=== PATIENT | male | born 1960 | race Caucasian/White ===

== ENCOUNTER 2020-11-18 07:30 | Inpatient (IN) | payer MEDICAID, OTHER ==
[~2020-11-18] VITALS: Ht 182.9 cm; Wt 64.7 kg
[2020-11-18] MEDS ORDERED: THIAMINE INJ 100 MG in SODIUM CHLORIDE 0.9% 1,000 ML IV ONE (08:45)
[2020-11-18] MEDS ORDERED: SODIUM CHLORIDE 0.9% 1,000 ML IV ONE ×3 (08:45→09:45)
[2020-11-18] MEDS ORDERED: LORazepam 2MG/ML-1ML VIAL IV ONE (09:00)
[2020-11-18 09:14] LABS: Basophils # (auto) 0 10 ^3/uL (0-0.2); Basophils % (auto) 0.1 % (0.0-2.0); Eosinophils # (auto) 0 10 ^3/uL (0-0.8); Hematocrit 41.8 % (41.0-53.0); Lymphocytes # (auto) 0.4 10 ^3/uL (0.4-5.4); Lymphocytes % (auto) 4.2 % (10.0-50.0); Monocytes # (auto) 0.8 10 ^3/uL (0-1.3); Nucleated Red Blood Cells % 0.2 %
[2020-11-18 09:17] LABS: Hemoglobin 15.2 g/dL (13.5-17.5); Mean Corpuscular Hemoglobin 37.7 pg (28.0-32.0); Mean Corpuscular Hgb Conc. 36.5 g/dL (32.0-36.0); Mean Corpuscular Volume 103.5 fL (80.0-100.0); Monocytes % (auto) 8.2 % (0.0-12.0); Neutrophils % (auto) 87.5 % (37.0-80.0); Red Blood Cells 4.03 10^6/uL (4.5-5.90); Red Cell Distribution Width 12.5 % (11.8-14.3); White Blood Cell 10.3 10^3/uL (4.4-10.8)
[2020-11-18 09:37] LABS: Albumin 3.5 g/dL (3.4-5.0); Anion Gap 21 (5-15); Blood Urea Nitrogen 24 mg/dL (7-18); Calcium 9.4 mg/dL (8.5-10.1); Carbon Dioxide 15 mmol/L (21-32); Chloride 102 mmol/L (98-107); Glucose 146 mg/dL (74-106); Magnesium 2.4 mg/dL (1.6-2.6); Potassium 3.5 mmol/L (3.5-5.1); Sodium 138 mmol/L (136-145)
[2020-11-18 09:45] LABS: Alanine Aminotransferase 75 U/L (16-61); Alkaline Phosphatase 116 U/L (45-117); Aspartate Aminotransferase 78 U/L (15-37); BUN/Creatinine Ratio 18.5; Bilirubin, Total 1.2 mg/dL (0.2-1.0); GFR African American 73 mL/min; GFR Non-African American 60 mL/min; Total Protein 8.2 g/dL (6.4-8.2)
[2020-11-18 09:50] LABS: Lactic Acid w/Reflex 9.8 mmol/L (0.4-2.0)
[2020-11-18 10:23] LABS: Urine Amorphous Crystal FEW /hpf (None Seen); Urine Bacteria FEW /hpf (None Seen); Urine Blood TRACE /uL (Negative); Urine Hyaline Cast FEW /lpf (0 - 2); Urine Mucus FEW (None Seen); Urine Specific Gravity 1.029 (1.001-1.035); Urine WBC 3 /hpf (0 - 3)
[2020-11-18 10:42] LABS: Amphetamine Screen, Urine NEGATIVE (NEGATIVE); Barbiturate Scree,Urine NEGATIVE (NEGATIVE); Benzodiazephine Screen, Urine NEGATIVE (NEGATIVE); Cannabinoid Screen, Urine NEGATIVE (NEGATIVE); Cocaine Screen, Urine NEGATIVE (NEGATIVE); Opiate Scree,Urine NEGATIVE (NEGATIVE); Phencyclidine Screen, Urine NEGATIVE (NEGATIVE)
[2020-11-18] MEDS ORDERED: DOXYCYCLINE 100MG/250ML 250 ML IV ONE ×2 (11:58→12:00)
[2020-11-18] MEDS ORDERED: DexAMETHasone SOD PHOS 10MG/1ML VIAL INJ IV ONE (14:30)
[2020-11-18] MEDS ORDERED: MORPHINE SULFATE INJECTION 2 MG/ML SYRG IV PRN (15:15)
[2020-11-18] MEDS ORDERED: NITROGLYCERIN 0.4 MG SL TAB SL PRN (15:15)
[2020-11-18] MEDS ORDERED: ALBUTEROL SULF HFA 90MCG INH 200DOSE IN PRN (15:45)
[2020-11-18] MEDS ORDERED: PANTOPRAZOLE 40 MG/10 ML VIAL INJ IV ONE (15:45)
[2020-11-18] MEDS ORDERED: THIAMINE 100mg/ml INJ (200mg/2ml VIAL) IV ONE (15:45)
[2020-11-18] MEDS ORDERED: LABETALOL HCL 5 MG/ML ML 20ML VIAL IV PRN (15:45)
[2020-11-18] MEDS ORDERED: chlordiazePOXIDE HCL 25 MG CAP PO PRN (15:45)
[2020-11-18] MEDS ORDERED: LACTULOSE 20Gm/30ML SOLN PO PRN (15:45)
[2020-11-18] MEDS: SODIUM CHLORIDE 0.9% 1,000 ML IV SCH ×2 (15:57→20:43)
[2020-11-18 16:09] LABS: CRP High Sensitivity 7.07 mg/dL (< 0.3)
[2020-11-18 17:35] LABS: INR 1.04 (0.9-1.15); Partial Thromboplastin Time 29.1 sec (23.0-31.2)
[2020-11-18] MEDS: chlordiazePOXIDE HCL 5 MG CAP PO SCH ×2 (18:15→23:09)
[2020-11-18] MEDS: CLINDAMYCIN 600MG IV 50 ML IV SCH (21:54)
[2020-11-18] MEDS: ENOXAPARIN SOD 40 MG/0.4 ML SYRINGE SC SCH (21:55)
[2020-11-18] MEDS ORDERED: BUDESONIDE (INHALATION) 180 MCG IH IN SCH (22:00)
[2020-11-19 06:17] LABS: Basophils # (auto) 0 10 ^3/uL (0-0.2); Basophils % (auto) 0.1 % (0.0-2.0); Eosinophils # (auto) 0 10 ^3/uL (0-0.8); Eosinophils % (auto) 0.2 % (0.0-7.0); Hemoglobin 11.5 g/dL (13.5-17.5); Lymphocytes # (auto) 0.7 10 ^3/uL (0.4-5.4); Lymphocytes % (auto) 9.5 % (10.0-50.0); Mean Corpuscular Hemoglobin 37.1 pg (28.0-32.0); Mean Corpuscular Hgb Conc. 35.9 g/dL (32.0-36.0); Mean Corpuscular Volume 103.3 fL (80.0-100.0); Monocytes # (auto) 0.6 10 ^3/uL (0-1.3); Monocytes % (auto) 8.8 % (0.0-12.0); Neutrophils % (auto) 81.4 % (37.0-80.0); Nucleated Red Blood Cells % 0.2 %; Red Cell Distribution Width 12.5 % (11.8-14.3); White Blood Cell 7.4 10^3/uL (4.4-10.8)
[2020-11-19] MEDS: CLINDAMYCIN 600MG IV 50 ML IV SCH ×3 (06:28→22:37)
[2020-11-19] MEDS: chlordiazePOXIDE HCL 5 MG CAP PO SCH ×3 (06:31→18:12)
[2020-11-19 06:36] LABS: Cholesterol 93 mg/dL (< 200); Triglycerides 77 mg/dL (< 150)
[2020-11-19 06:38] LABS: HDL Cholesterol 51 mg/dL (40-59); LDL Cholesterol 32 mg/dL (< 100)
[2020-11-19 06:56] LABS: BUN/Creatinine Ratio 29.2
[2020-11-19 06:57] LABS: Albumin 2.4 g/dL (3.4-5.0); Bilirubin, Total 0.7 mg/dL (0.2-1.0); Calcium 7.6 mg/dL (8.5-10.1); Total Protein 5.9 g/dL (6.4-8.2)
[2020-11-19] MEDS ORDERED: IVERMECTIN 3 MG TAB PO ONE (07:00)
[2020-11-19] MEDS: SODIUM CHLORIDE 0.9% 1,000 ML IV SCH ×3 (08:05→23:45)
[2020-11-19] MEDS: levoFLOXacin 500MG 100 ML IV SCH (10:05)
[2020-11-19] MEDS: ASPirin 81 mg TAB PO SCH (10:05)
[2020-11-19] MEDS: ZINC SULFATE 220mg CAP or TAB PO SCH (10:05)
[2020-11-19] MEDS: PANTOPRAZOLE 40 MG TAB PO SCH (10:05)
[2020-11-19] MEDS: CHOLECALCIFEROL (VITD3) 2,000 UNIT CAP/TAB PO SCH (10:05)
[2020-11-19] MEDS: ENOXAPARIN SOD 40 MG/0.4 ML SYRINGE SC SCH ×2 (10:05→22:38)
[2020-11-19] MEDS: DexAMETHasone SOD PHOS 10MG/1ML VIAL INJ IV SCH (10:05)
[2020-11-19] MEDS: THIAMINE 100mg/ml INJ (200mg/2ml VIAL) IV SCH (10:05)
[2020-11-19] MEDS: ASCORBIC ACID 1,000 MG TAB PO SCH (10:05)
[2020-11-19] MEDS ORDERED: POTASSIUM EFFERVESENT TAB 25 MEQ PO ONE (13:30)
[2020-11-20] MEDS: chlordiazePOXIDE HCL 5 MG CAP PO SCH ×4 (02:06→18:27)
[2020-11-20] MEDS: CLINDAMYCIN 600MG IV 50 ML IV SCH ×3 (06:23→23:18)
[2020-11-20] MEDS: ASCORBIC ACID 1,000 MG TAB PO SCH (09:03)
[2020-11-20] MEDS: ASPirin 81 mg TAB PO SCH (09:04)
[2020-11-20] MEDS: PANTOPRAZOLE 40 MG TAB PO SCH (09:04)
[2020-11-20] MEDS: ZINC SULFATE 220mg CAP or TAB PO SCH (09:04)
[2020-11-20] MEDS: CHOLECALCIFEROL (VITD3) 2,000 UNIT CAP/TAB PO SCH (09:04)
[2020-11-20] MEDS: ENOXAPARIN SOD 40 MG/0.4 ML SYRINGE SC SCH ×2 (09:05→22:00)
[2020-11-20] MEDS: levoFLOXacin 500MG 100 ML IV SCH (09:05)
[2020-11-20] MEDS: DexAMETHasone SOD PHOS 10MG/1ML VIAL INJ IV SCH (09:06)
[2020-11-20] MEDS: THIAMINE 100mg/ml INJ (200mg/2ml VIAL) IV SCH (09:06)
[2020-11-20] MEDS: SODIUM CHLORIDE 0.9% 1,000 ML IV SCH ×3 (09:06→23:45)
[2020-11-20] MEDS: FOLIC ACID 1 MG, MAGNESIUM SULF SDV 50% 8 MEQ, THIAMINE INJ 100 MG in D5W 5% 1,000 ML INJ SCH (12:21)
[2020-11-20] MEDS: MULTIPLE VITAMIN TAB PO SCH (13:03)
[2020-11-21] MEDS: chlordiazePOXIDE HCL 5 MG CAP PO SCH ×5 (02:40→23:50)
[2020-11-21] MEDS: CLINDAMYCIN 600MG IV 50 ML IV SCH ×3 (06:59→22:00)
[2020-11-21] MEDS ORDERED: POTASSIUM CHL 20 Meq TABLET PO ONE (09:00)
[2020-11-21 09:33] LABS: Basophils # (auto) 0 10 ^3/uL (0-0.2); Basophils % (auto) 0.1 % (0.0-2.0); Eosinophils # (auto) 0.1 10 ^3/uL (0-0.8); Lymphocytes # (auto) 0.8 10 ^3/uL (0.4-5.4); Nucleated Red Blood Cells % 0.1 %; White Blood Cell 7.8 10^3/uL (4.4-10.8)
[2020-11-21 09:37] LABS: Eosinophils % (auto) 1.2 % (0.0-7.0); Hematocrit 35.5 % (41.0-53.0); Hemoglobin 12.8 g/dL (13.5-17.5); Lymphocytes % (auto) 10.2 % (10.0-50.0); Mean Corpuscular Hemoglobin 36.4 pg (28.0-32.0); Mean Corpuscular Hgb Conc. 36.1 g/dL (32.0-36.0); Mean Corpuscular Volume 100.8 fL (80.0-100.0); Monocytes # (auto) 0.8 10 ^3/uL (0-1.3); Neutrophils # (auto) 6.1 10 ^3/uL (1.6-8.6); Neutrophils % (auto) 78.5 % (37.0-80.0); Red Blood Cells 3.53 10^6/uL (4.5-5.90); Red Cell Distribution Width 12.5 % (11.8-14.3)
[2020-11-21 09:43] LABS: Albumin 2.2 g/dL (3.4-5.0); Calcium 7.5 mg/dL (8.5-10.1)
[2020-11-21 09:46] LABS: BUN/Creatinine Ratio 18.8; Bilirubin, Total 0.6 mg/dL (0.2-1.0); Total Protein 5.6 g/dL (6.4-8.2)
[2020-11-21 09:55] LABS: Potassium 2.3 mmol/L (3.5-5.1)
[2020-11-21] MEDS: SODIUM CHLORIDE 0.9% 1,000 ML IV SCH ×3 (10:31→20:30)
[2020-11-21] MEDS: ASPirin 81 mg TAB PO SCH (10:34)
[2020-11-21] MEDS: DexAMETHasone SOD PHOS 10MG/1ML VIAL INJ IV SCH (10:34)
[2020-11-21] MEDS: ENOXAPARIN SOD 40 MG/0.4 ML SYRINGE SC SCH ×2 (10:34→22:00)
[2020-11-21] MEDS: POTASSIUM CHL 20MEQ/100ML 100 ML IV SCH ×4 (10:34→16:26)
[2020-11-21] MEDS: MULTIPLE VITAMIN TAB PO SCH (10:41)
[2020-11-21] MEDS: ASCORBIC ACID 1,000 MG TAB PO SCH (10:41)
[2020-11-21] MEDS: ZINC SULFATE 220mg CAP or TAB PO SCH (10:41)
[2020-11-21] MEDS: CHOLECALCIFEROL (VITD3) 2,000 UNIT CAP/TAB PO SCH (10:41)
[2020-11-21] MEDS: PANTOPRAZOLE 40 MG TAB PO SCH (10:42)
[2020-11-21] MEDS: THIAMINE 100mg/ml INJ (200mg/2ml VIAL) IV SCH (10:51)
[2020-11-21] MEDS: IPRATROPIUM BROM 0.5 MG/2.5ML INH SOL NEB SCH ×2 (11:33→19:39)
[2020-11-21] MEDS: ALBUTEROL SULF 2.5 MG/0.5ML(0.5%) NEB SOLN NEB SCH ×2 (11:47→19:39)
[2020-11-21] MEDS ORDERED: ACETYLCYSTEINE 10 %(100MG/ML) SOL 4ML NEB SCH (12:00)
[2020-11-21] MEDS: FOLIC ACID 1 MG, MAGNESIUM SULF SDV 50% 8 MEQ, THIAMINE INJ 100 MG in D5W 5% 1,000 ML INJ SCH (12:30)
[2020-11-21] MEDS: levoFLOXacin 500MG 100 ML IV SCH (13:11)
[2020-11-21 18:28] VITALS: BP 101/69
[2020-11-21] MEDS: ACETYLCYSTEINE 10 %(100MG/ML) SOL 4ML NEB SCH (19:39)
[2020-11-21 21:51] VITALS: BP 94/59
[2020-11-22 05:37] VITALS: BP 115/65
[2020-11-22] MEDS: CLINDAMYCIN 600MG IV 50 ML IV SCH (06:00)
[2020-11-22] MEDS: chlordiazePOXIDE HCL 5 MG CAP PO SCH ×4 (06:00→23:35)
[2020-11-22] MEDS: SODIUM CHLORIDE 0.9% 1,000 ML IV SCH ×3 (06:00→23:35)
[2020-11-22] MEDS: ACETYLCYSTEINE 10 %(100MG/ML) SOL 4ML NEB SCH ×3 (06:07→19:24)
[2020-11-22] MEDS: IPRATROPIUM BROM 0.5 MG/2.5ML INH SOL NEB SCH ×3 (06:07→19:24)
[2020-11-22] MEDS: ALBUTEROL SULF 2.5 MG/0.5ML(0.5%) NEB SOLN NEB SCH ×3 (06:07→19:24)
[2020-11-22 07:46] VITALS: BP 147/60
[2020-11-22] MEDS ORDERED: POTASSIUM CHL 20 Meq TABLET PO ONE (10:00)
[2020-11-22] MEDS: THIAMINE 100mg/ml INJ (200mg/2ml VIAL) IV SCH (10:06)
[2020-11-22] MEDS: ENOXAPARIN SOD 40 MG/0.4 ML SYRINGE SC SCH ×2 (10:06→21:16)
[2020-11-22] MEDS: ASPirin 81 mg TAB PO SCH (10:06)
[2020-11-22] MEDS: PANTOPRAZOLE 40 MG TAB PO SCH (10:06)
[2020-11-22] MEDS: levoFLOXacin 500MG 100 ML IV SCH (10:06)
[2020-11-22] MEDS ORDERED: POTASSIUM CHLORIDE 60 MEQ, LIDOCAINE 1% (LOCAL ANESTH.) 6 ML in SODIUM CHL 0.9% 500 ML IV ONE (10:15)
[2020-11-22 15:47] VITALS: BP 101/58
[2020-11-22] MEDS ORDERED: POTASSIUM EFFERVESENT TAB 25 MEQ GT SCH (20:00)
[2020-11-22] MEDS ORDERED: LORazepam 2MG/ML-1ML VIAL IV PRN (20:30)
[2020-11-22] MEDS: POTASSIUM EFFERVESENT TAB 25 MEQ PO SCH (20:35)
[2020-11-22 22:00] VITALS: BP_SYST 159; BP_SYST 99; BP_DIAS 67; BP_DIAS 85
[2020-11-23] MEDS: chlordiazePOXIDE HCL 5 MG CAP PO SCH ×4 (05:41→23:32)
[2020-11-23 05:43] VITALS: BP 128/71
[2020-11-23] MEDS: SODIUM CHLORIDE 0.9% 1,000 ML IV SCH ×3 (06:51→21:44)
[2020-11-23] MEDS: ALBUTEROL SULF 2.5 MG/0.5ML(0.5%) NEB SOLN NEB SCH ×3 (07:00→18:52)
[2020-11-23] MEDS: ACETYLCYSTEINE 10 %(100MG/ML) SOL 4ML NEB SCH ×3 (07:00→18:52)
[2020-11-23] MEDS: IPRATROPIUM BROM 0.5 MG/2.5ML INH SOL NEB SCH ×3 (07:00→18:52)
[2020-11-23 08:00] VITALS: BP 103/70
[2020-11-23 08:12] LABS: Albumin 2.3 g/dL (3.4-5.0); Calcium 7.7 mg/dL (8.5-10.1)
[2020-11-23 08:16] LABS: BUN/Creatinine Ratio 6.7; Bilirubin, Total 0.5 mg/dL (0.2-1.0); Total Protein 5.6 g/dL (6.4-8.2)
[2020-11-23] MEDS: POTASSIUM EFFERVESENT TAB 25 MEQ PO SCH (10:26)
[2020-11-23] MEDS: PANTOPRAZOLE 40 MG TAB PO SCH (10:26)
[2020-11-23] MEDS: ASPirin 81 mg TAB PO SCH (10:26)
[2020-11-23] MEDS: ENOXAPARIN SOD 40 MG/0.4 ML SYRINGE SC SCH ×2 (10:27→21:44)
[2020-11-23] MEDS: THIAMINE 100mg/ml INJ (200mg/2ml VIAL) IV SCH (10:27)
[2020-11-23] MEDS: levoFLOXacin 500MG 100 ML IV SCH (10:27)
[2020-11-23] MEDS ORDERED: POTASSIUM CHL 20 Meq TABLET PO ONE (11:45)
[2020-11-23 16:00] VITALS: BP 106/65
[2020-11-23 22:00] VITALS: BP 102/74
[2020-11-24 05:00] VITALS: BP 127/84
[2020-11-24] MEDS: ALBUTEROL SULF 2.5 MG/0.5ML(0.5%) NEB SOLN NEB SCH ×3 (05:50→18:00)
[2020-11-24] MEDS: IPRATROPIUM BROM 0.5 MG/2.5ML INH SOL NEB SCH ×3 (05:50→18:00)
[2020-11-24] MEDS: ACETYLCYSTEINE 10 %(100MG/ML) SOL 4ML NEB SCH ×3 (05:50→18:00)
[2020-11-24] MEDS: chlordiazePOXIDE HCL 5 MG CAP PO SCH ×3 (05:59→18:35)
[2020-11-24 07:08] LABS: Potassium 3.1 mmol/L (3.5-5.1)
[2020-11-24 07:20] LABS: Albumin 2.4 g/dL (3.4-5.0); BUN/Creatinine Ratio 8.9; Bilirubin, Total 0.6 mg/dL (0.2-1.0); Calcium 7.9 mg/dL (8.5-10.1)
[2020-11-24 07:34] VITALS: BP 117/72
[2020-11-24] MEDS: SODIUM CHLORIDE 0.9% 1,000 ML IV SCH ×3 (07:45→23:45)
[2020-11-24] MEDS: THIAMINE 100mg/ml INJ (200mg/2ml VIAL) IV SCH (09:16)
[2020-11-24] MEDS: levoFLOXacin 500MG 100 ML IV SCH (09:16)
[2020-11-24] MEDS: ASPirin 81 mg TAB PO SCH (09:16)
[2020-11-24] MEDS: POTASSIUM EFFERVESENT TAB 25 MEQ PO SCH ×4 (09:16→22:18)
[2020-11-24] MEDS: ENOXAPARIN SOD 40 MG/0.4 ML SYRINGE SC SCH ×2 (09:17→22:19)
[2020-11-24] MEDS: PANTOPRAZOLE 40 MG TAB PO SCH (09:17)
[2020-11-24] MEDS ORDERED: ACETAMINOPHEN 325 MG TAB PO PRN (15:30)
[2020-11-24 16:00] VITALS: BP 102/61
[2020-11-24] MEDS: FOLIC ACID 1 MG TAB PO SCH (18:34)
[2020-11-24] MEDS: MULTIPLE VITAMIN TAB PO SCH (18:34)
[2020-11-24 22:00] VITALS: BP 103/64
[2020-11-24] MEDS: FOLIC ACID 1 MG, MAGNESIUM SULF SDV 50% 8 MEQ, THIAMINE INJ 100 MG in D5W 5% 1,000 ML INJ SCH (22:17)
[2020-11-25] MEDS: chlordiazePOXIDE HCL 5 MG CAP PO SCH ×4 (00:59→20:02)
[2020-11-25 05:00] VITALS: BP 99/69
[2020-11-25 06:07] LABS: Albumin 2.7 g/dL (3.4-5.0); Calcium 8.7 mg/dL (8.5-10.1); Potassium 4.1 mmol/L (3.5-5.1)
[2020-11-25 06:09] LABS: BUN/Creatinine Ratio 6.8
[2020-11-25 06:19] LABS: Bilirubin, Total 0.6 mg/dL (0.2-1.0); Total Protein 6.5 g/dL (6.4-8.2)
[2020-11-25] MEDS: SODIUM CHLORIDE 0.9% 1,000 ML IV SCH ×3 (07:45→20:52)
[2020-11-25 08:00] VITALS: BP 103/75
[2020-11-25] MEDS: ALBUTEROL SULF 2.5 MG/0.5ML(0.5%) NEB SOLN NEB SCH ×3 (08:35→19:16)
[2020-11-25] MEDS: IPRATROPIUM BROM 0.5 MG/2.5ML INH SOL NEB SCH ×3 (08:35→19:16)
[2020-11-25] MEDS: ACETYLCYSTEINE 10 %(100MG/ML) SOL 4ML NEB SCH ×3 (08:36→19:16)
[2020-11-25] MEDS: POTASSIUM EFFERVESENT TAB 25 MEQ PO SCH ×2 (11:18→22:00)
[2020-11-25] MEDS: levoFLOXacin 500MG 100 ML IV SCH (11:18)
[2020-11-25] MEDS: PANTOPRAZOLE 40 MG TAB PO SCH (11:18)
[2020-11-25] MEDS: FOLIC ACID 1 MG TAB PO SCH (11:18)
[2020-11-25] MEDS: ASPirin 81 mg TAB PO SCH (11:18)
[2020-11-25] MEDS: MULTIPLE VITAMIN TAB PO SCH (11:18)
[2020-11-25] MEDS: THIAMINE 100mg/ml INJ (200mg/2ml VIAL) IV SCH (11:18)
[2020-11-25] MEDS: ENOXAPARIN SOD 40 MG/0.4 ML SYRINGE SC SCH ×2 (11:18→22:00)
[2020-11-25] MEDS: FOLIC ACID 1 MG, MAGNESIUM SULF SDV 50% 8 MEQ, THIAMINE INJ 100 MG in D5W 5% 1,000 ML INJ SCH (13:29)
[2020-11-25 16:00] VITALS: BP 91/52
[2020-11-25 22:00] VITALS: BP 94/57
[2020-11-26 05:00] VITALS: BP 98/71
[2020-11-26] MEDS: chlordiazePOXIDE HCL 5 MG CAP PO SCH ×3 (05:46→12:00)
[2020-11-26] MEDS: IPRATROPIUM BROM 0.5 MG/2.5ML INH SOL NEB SCH ×3 (06:37→18:24)
[2020-11-26] MEDS: ALBUTEROL SULF 2.5 MG/0.5ML(0.5%) NEB SOLN NEB SCH ×3 (06:37→18:24)
[2020-11-26] MEDS: ACETYLCYSTEINE 10 %(100MG/ML) SOL 4ML NEB SCH ×3 (06:38→18:25)
[2020-11-26] MEDS: SODIUM CHLORIDE 0.9% 1,000 ML IV SCH ×3 (09:20→23:45)
[2020-11-26] MEDS: THIAMINE 100mg/ml INJ (200mg/2ml VIAL) IV SCH (09:56)
[2020-11-26] MEDS: ASPirin 81 mg TAB PO SCH (09:57)
[2020-11-26] MEDS: FOLIC ACID 1 MG TAB PO SCH (09:57)
[2020-11-26] MEDS: levoFLOXacin 500MG 100 ML IV SCH (09:57)
[2020-11-26] MEDS: POTASSIUM EFFERVESENT TAB 25 MEQ PO SCH ×2 (09:57→22:00)
[2020-11-26] MEDS: PANTOPRAZOLE 40 MG TAB PO SCH (09:58)
[2020-11-26] MEDS: MULTIPLE VITAMIN TAB PO SCH (09:58)
[2020-11-26] MEDS: ENOXAPARIN SOD 40 MG/0.4 ML SYRINGE SC SCH ×2 (09:58→22:00)
[2020-11-26] MEDS: LIDOCAINE 5% TOPICAL PATCH TOP SCH (09:59)
[2020-11-26] MEDS: FOLIC ACID 1 MG, MAGNESIUM SULF SDV 50% 8 MEQ, THIAMINE INJ 100 MG in D5W 5% 1,000 ML INJ SCH (12:00)
[2020-11-26 16:00] VITALS: BP 91/56
[2020-11-26 22:00] VITALS: BP 103/67
[2020-11-27] MEDS: chlordiazePOXIDE HCL 5 MG CAP PO SCH ×4 (06:00→18:42)
[2020-11-27] MEDS: IPRATROPIUM BROM 0.5 MG/2.5ML INH SOL NEB SCH ×2 (06:00→11:30)
[2020-11-27] MEDS: ALBUTEROL SULF 2.5 MG/0.5ML(0.5%) NEB SOLN NEB SCH ×2 (06:00→11:30)
[2020-11-27] MEDS: ACETYLCYSTEINE 10 %(100MG/ML) SOL 4ML NEB SCH ×2 (06:00→11:30)
[2020-11-27] MEDS: SODIUM CHLORIDE 0.9% 1,000 ML IV SCH ×2 (07:45→19:16)
[2020-11-27 08:00] VITALS: BP 92/65
[2020-11-27] MEDS ORDERED: DOXYCYCLINE 100 MG TAB/CAP PO SCH (10:00)
[2020-11-27] MEDS ORDERED: levoFLOXacin 500 MG TAB PO SCH (10:00)
[2020-11-27] MEDS: ENOXAPARIN SOD 40 MG/0.4 ML SYRINGE SC SCH (10:16)
[2020-11-27] MEDS: POTASSIUM EFFERVESENT TAB 25 MEQ PO SCH (10:16)
[2020-11-27] MEDS: LIDOCAINE 5% TOPICAL PATCH TOP SCH (10:16)
[2020-11-27] MEDS: MULTIPLE VITAMIN TAB PO SCH (10:18)
[2020-11-27] MEDS: ASPirin 81 mg TAB PO SCH (10:18)
[2020-11-27] MEDS: FOLIC ACID 1 MG TAB PO SCH (10:18)
[2020-11-27] MEDS: PANTOPRAZOLE 40 MG TAB PO SCH (10:19)
[2020-11-27] MEDS: THIAMINE 100mg/ml INJ (200mg/2ml VIAL) IV SCH (13:24)
[2020-11-27] MEDS: FOLIC ACID 1 MG, MAGNESIUM SULF SDV 50% 8 MEQ, THIAMINE INJ 100 MG in D5W 5% 1,000 ML INJ SCH (13:27)
[2020-11-27 16:00] VITALS: BP 102/79
[2020-11-27 17:05] VITALS: BP 102/79
== END 2020-11-27 19:04 | DRG 45 ==
LOC: ER 07:30 → EDBD 07:30 → TELE 15:07 → TELE-CENTR 11-21 17:47
PROVIDERS: ADMIT Internal Medicine; ATTEND Family Medicine
DX: I63.9 Cerebral infarction, unspecified (principal); G93.41 Metabolic encephalopathy; F10.231 Alcohol dependence with withdrawal delirium; J18.9 Pneumonia, unspecified organism; E51.2 Wernicke's encephalopathy; K85.90 Acute pancreatitis without necrosis or infection, unspecified; E87.2 Acidosis; K76.0 Fatty (change of) liver, not elsewhere classified; Y90.0 Blood alcohol level of less than 20 mg/100 ml; J43.9 Emphysema, unspecified; Z20.822 Contact with and (suspected) exposure to COVID-19; R09.02 Hypoxemia; F17.200 Nicotine dependence, unspecified, uncomplicated; D69.59 Other secondary thrombocytopenia; M54.2 Cervicalgia; E87.6 Hypokalemia; J44.0 Chronic obstructive pulmonary disease with (acute) lower respiratory infection
CPT/HCPCS: 36415; 36600; 70450; 71045; 71250; 72141; 74176; 76705; 80053; 80061; 80307; 81001; 82140; 82150; 82550; 82805; 83605; 83690; 83735; 84132; 84443; 84484; 85025; 85610; 85652; 85730; 86141; 87040; 87086; 87426; 92610; 93005; 94640; 95819; 96361; 96365; 96367; 96375; C9113; G0378; J1100; J1956; J2001; J3480; J3490

== ENCOUNTER 2021-08-22 17:12 | Inpatient (IN) | payer MEDICAID ==
[~2021-08-22] VITALS: Ht 182.9 cm; Wt 61.4 kg
[2021-08-22] MEDS ORDERED: SODIUM CHLORIDE 0.9% 1,000 ML IVB ONE (18:00)
[2021-08-22 21:39] LABS: Basophils # (auto) 0 10 ^3/uL (0-0.2); Basophils % (auto) 0.1 % (0.0-2.0); Eosinophils # (auto) 0 10 ^3/uL (0-0.8); Hemoglobin 14.7 g/dL (13.5-17.5); Lymphocytes # (auto) 0.3 10 ^3/uL (0.4-5.4); Lymphocytes % (auto) 1.8 % (10.0-50.0); Nucleated Red Blood Cells % 0.3 %; Red Cell Distribution Width 13.4 % (11.8-14.3)
[2021-08-22 21:41] LABS: Hematocrit 42.6 % (41.0-53.0); Mean Corpuscular Hemoglobin 34.7 pg (28.0-32.0); Mean Corpuscular Hgb Conc. 34.6 g/dL (32.0-36.0); Mean Corpuscular Volume 100.5 fL (80.0-100.0); Monocytes # (auto) 1.2 10 ^3/uL (0-1.3); Monocytes % (auto) 7.4 % (0.0-12.0); Neutrophils # (auto) 14.2 10 ^3/uL (1.6-8.6); Neutrophils % (auto) 90.7 % (37.0-80.0); Red Blood Cells 4.24 10^6/uL (4.5-5.90); White Blood Cell 15.7 10^3/uL (4.4-10.8)
[2021-08-22 21:47] LABS: Albumin 3.4 g/dL (3.4-5.0); Potassium 3.7 mmol/L (3.5-5.1)
[2021-08-22 21:50] LABS: Lactic Acid w/Reflex 3.6 mmol/L (0.4-2.0)
[2021-08-22 21:55] LABS: BUN/Creatinine Ratio 32.1; Bilirubin, Total 1.4 mg/dL (0.2-1.0); Total Protein 7.8 g/dL (6.4-8.2)
[2021-08-23] MEDS ORDERED: HYDROcodone-ACET 5/325MG TAB PO PRN (05:00)
[2021-08-23] MEDS ORDERED: NITROGLYCERIN 0.4 MG SL TAB SL PRN (05:00)
[2021-08-23] MEDS ORDERED: VANCOMYCIN PER PHARMACY 0 MG IV SCH (05:00)
[2021-08-23] MEDS ORDERED: ACETAMINOPHEN 325 MG TAB PO PRN (05:00)
[2021-08-23] MEDS ORDERED: ONDANSETRON HCL 4 MG/2 ML VIAL IV PRN (05:00)
[2021-08-23] MEDS ORDERED: MORPHINE SULFATE INJECTION 2 MG/ML SYRG IV PRN (05:00)
[2021-08-23] MEDS ORDERED: VANCOMYCIN 1GM/250ML 250 ML IV ONE (05:00)
[2021-08-23] MEDS ORDERED: DOCUSATE SOD 100 MG CAP PO PRN (05:00)
[2021-08-23] MEDS: SODIUM CHLORIDE 0.9% 1,000 ML IV SCH ×2 (05:21→23:28)
[2021-08-23 07:41] LABS: Basophils # (auto) 0 10 ^3/uL (0-0.2); Basophils % (auto) 0.1 % (0.0-2.0); Eosinophils # (auto) 0 10 ^3/uL (0-0.8); Monocytes # (auto) 0.8 10 ^3/uL (0-1.3); Red Cell Distribution Width 13.3 % (11.8-14.3)
[2021-08-23 07:43] LABS: Hemoglobin 13.4 g/dL (13.5-17.5); Lymphocytes # (auto) 0.6 10 ^3/uL (0.4-5.4); Lymphocytes % (auto) 4.8 % (10.0-50.0); Mean Corpuscular Hemoglobin 34.9 pg (28.0-32.0); Mean Corpuscular Hgb Conc. 34.5 g/dL (32.0-36.0); Monocytes % (auto) 7.3 % (0.0-12.0); Neutrophils # (auto) 10.1 10 ^3/uL (1.6-8.6); Neutrophils % (auto) 87.8 % (37.0-80.0); Nucleated Red Blood Cells % 0.3 %; Red Blood Cells 3.86 10^6/uL (4.5-5.90); White Blood Cell 11.5 10^3/uL (4.4-10.8)
[2021-08-23 07:53] LABS: Calcium 8.5 mg/dL (8.5-10.1)
[2021-08-23 07:56] LABS: BUN/Creatinine Ratio 34.4; Total Protein 7.6 g/dL (6.4-8.2)
[2021-08-23 08:00] LABS: Lactic Acid w/Reflex 2.3 mmol/L (0.4-2.0)
[2021-08-23] MEDS ORDERED: ZINC SULFATE 220mg CAP or TAB PO SCH (10:00)
[2021-08-23] MEDS: FAMOTIDINE (10MG/ML) 2ML VL IV SCH (10:58)
[2021-08-23] MEDS: MULTIPLE VITAMIN TAB PO SCH (10:58)
[2021-08-23] MEDS: ASCORBIC ACID 500 MG TAB PO SCH ×2 (10:59→22:42)
[2021-08-23] MEDS: ENOXAPARIN SOD 40 MG/0.4 ML SYRINGE SC SCH (10:59)
[2021-08-23] MEDS ORDERED: VANCOMYCIN 1GM/250ML 250 ML IV SCH (17:00)
[2021-08-23] MEDS ORDERED: LORazepam 2MG/ML-1ML VIAL IV PRN (19:30)
[2021-08-23] MEDS: cefTRIAXone 1GM/50ML D5W 50 ML IV SCH (19:39)
[2021-08-23] MEDS: DOXYCYCLINE 100MG/250ML 250 ML IV SCH (20:37)
[2021-08-23] MEDS: FOLIC ACID 1 MG, MULTIPLE VITAMIN 10 ML, MAGNESIUM SULF SDV 50% 8 MEQ, THIAMINE INJ 100... INJ SCH ×5 (22:43)
[2021-08-23 22:50] LABS: Folate (Folic Acid) 5.93 ng/mL (5.38-24)
[2021-08-24 05:00] VITALS: BP 104/62
[2021-08-24] MEDS: DOXYCYCLINE 100MG/250ML 250 ML IV SCH ×3 (06:04→16:30)
[2021-08-24 08:14] LABS: Urine Bacteria FEW /hpf (None Seen); Urine Blood Negative /uL (Negative); Urine Specific Gravity 1.021 (1.001-1.035); Urine WBC 11 /hpf (0 - 3)
[2021-08-24 08:32] LABS: Alcohol, Urine < 3.0 mg/dL (0-10); Amphetamine Screen, Urine NEGATIVE (NEGATIVE); Barbiturate Scree,Urine NEGATIVE (NEGATIVE); Benzodiazephine Screen, Urine NEGATIVE (NEGATIVE); Cannabinoid Screen, Urine NEGATIVE (NEGATIVE); Cocaine Screen, Urine NEGATIVE (NEGATIVE); Opiate Scree,Urine NEGATIVE (NEGATIVE); Phencyclidine Screen, Urine NEGATIVE (NEGATIVE)
[2021-08-24 09:00] VITALS: BP 103/64
[2021-08-24] MEDS: cefTRIAXone 1GM/50ML D5W 50 ML IV SCH (09:00)
[2021-08-24] MEDS: FAMOTIDINE (10MG/ML) 2ML VL IV SCH (10:00)
[2021-08-24] MEDS: ASCORBIC ACID 500 MG TAB PO SCH ×2 (10:00→22:34)
[2021-08-24] MEDS: ENOXAPARIN SOD 40 MG/0.4 ML SYRINGE SC SCH (10:00)
[2021-08-24] MEDS: MULTIPLE VITAMIN TAB PO SCH (10:00)
[2021-08-24] MEDS: FOLIC ACID 1 MG, MULTIPLE VITAMIN 10 ML, MAGNESIUM SULF SDV 50% 8 MEQ, THIAMINE INJ 100... INJ SCH ×5 (12:00)
[2021-08-24 13:00] VITALS: BP 107/75
[2021-08-24] MEDS: SODIUM CHLORIDE 0.9% 1,000 ML IV SCH (14:20)
[2021-08-24 17:00] VITALS: BP 88/55
[2021-08-24 21:49] LABS: Basophils # (auto) 0 10 ^3/uL (0-0.2); Eosinophils # (auto) 0.1 10 ^3/uL (0-0.8); Lymphocytes # (auto) 0.9 10 ^3/uL (0.4-5.4); Mean Corpuscular Hgb Conc. 36.1 g/dL (32.0-36.0); Nucleated Red Blood Cells % 0.3 %; White Blood Cell 6.6 10^3/uL (4.4-10.8)
[2021-08-24 21:50] LABS: Basophils % (auto) 0.1 % (0.0-2.0); Eosinophils % (auto) 1.1 % (0.0-7.0); Hematocrit 29.7 % (41.0-53.0); Hemoglobin 10.7 g/dL (13.5-17.5); Lymphocytes % (auto) 12.9 % (10.0-50.0); Mean Corpuscular Hemoglobin 35.7 pg (28.0-32.0); Monocytes # (auto) 0.9 10 ^3/uL (0-1.3); Monocytes % (auto) 12.9 % (0.0-12.0); Neutrophils # (auto) 4.8 10 ^3/uL (1.6-8.6); Red Cell Distribution Width 13.4 % (11.8-14.3)
[2021-08-24 22:00] VITALS: BP 100/41
[2021-08-24 22:00] LABS: Albumin 2.2 g/dL (3.4-5.0); Calcium 7.8 mg/dL (8.5-10.1); Magnesium 2.1 mg/dL (1.6-2.6); Potassium 3.4 mmol/L (3.5-5.1)
[2021-08-24 22:03] LABS: BUN/Creatinine Ratio 27.6; Bilirubin, Total 0.4 mg/dL (0.2-1.0); Total Protein 5.5 g/dL (6.4-8.2)
[2021-08-25] MEDS: DOXYCYCLINE 100MG/250ML 250 ML IV SCH ×2 (04:30→16:30)
[2021-08-25 05:00] VITALS: BP 103/64
[2021-08-25] MEDS: SODIUM CHLORIDE 0.9% 1,000 ML IV SCH (06:58)
[2021-08-25 08:00] VITALS: BP 100/68
[2021-08-25] MEDS: cefTRIAXone 1GM/50ML D5W 50 ML IV SCH (09:00)
[2021-08-25] MEDS: ENOXAPARIN SOD 40 MG/0.4 ML SYRINGE SC SCH (10:00)
[2021-08-25] MEDS: FAMOTIDINE (10MG/ML) 2ML VL IV SCH (10:00)
[2021-08-25] MEDS: ASCORBIC ACID 500 MG TAB PO SCH ×2 (10:00→22:12)
[2021-08-25] MEDS: MULTIPLE VITAMIN TAB PO SCH (10:00)
[2021-08-25 12:00] VITALS: BP 96/52
[2021-08-25] MEDS: FOLIC ACID 1 MG, MULTIPLE VITAMIN 10 ML, MAGNESIUM SULF SDV 50% 8 MEQ, THIAMINE INJ 100... INJ SCH ×5 (12:00)
[2021-08-25 16:00] VITALS: BP 102/60
[2021-08-25 22:00] VITALS: BP 91/60
[2021-08-26] MEDS: SODIUM CHLORIDE 0.9% 1,000 ML IV SCH (00:16)
[2021-08-26] MEDS: DOXYCYCLINE 100MG/250ML 250 ML IV SCH ×2 (04:47→17:00)
[2021-08-26 05:00] VITALS: BP 108/61
[2021-08-26 09:40] VITALS: BP 99/65
[2021-08-26] MEDS: cefTRIAXone 1GM/50ML D5W 50 ML IV SCH (10:36)
[2021-08-26] MEDS: ASCORBIC ACID 500 MG TAB PO SCH ×2 (10:36→22:14)
[2021-08-26] MEDS: ENOXAPARIN SOD 40 MG/0.4 ML SYRINGE SC SCH (10:36)
[2021-08-26] MEDS: MULTIPLE VITAMIN TAB PO SCH (10:37)
[2021-08-26] MEDS: FAMOTIDINE (10MG/ML) 2ML VL IV SCH (10:53)
[2021-08-26 13:00] VITALS: BP 105/64
[2021-08-26] MEDS: FOLIC ACID 1 MG, MULTIPLE VITAMIN 10 ML, MAGNESIUM SULF SDV 50% 8 MEQ, THIAMINE INJ 100... INJ SCH ×5 (13:47)
[2021-08-26 17:00] VITALS: BP 104/73
[2021-08-26] MEDS ORDERED: POTASSIUM CHL 20 Meq TABLET PO ONE (17:45)
[2021-08-26] MEDS: Ensure Enlive Strawberry 8oz Bottle PO SCH (18:41)
[2021-08-26] MEDS ORDERED: ERGOCALCIFEROL 50,000 UNIT(1.25MG) CAP PO SCH (20:00)
[2021-08-26 21:59] VITALS: BP 101/85
[2021-08-27] MEDS: DOXYCYCLINE 100MG/250ML 250 ML IV SCH ×2 (04:16→16:56)
[2021-08-27 05:32] VITALS: BP 108/81
[2021-08-27] MEDS: Ensure Enlive Strawberry 8oz Bottle PO SCH ×3 (08:30→18:30)
[2021-08-27 09:00] VITALS: BP 92/58
[2021-08-27] MEDS: ASCORBIC ACID 500 MG TAB PO SCH ×2 (09:38→21:24)
[2021-08-27] MEDS: MULTIPLE VITAMIN TAB PO SCH (09:39)
[2021-08-27] MEDS: ENOXAPARIN SOD 40 MG/0.4 ML SYRINGE SC SCH (09:40)
[2021-08-27] MEDS: cefTRIAXone 1GM/50ML D5W 50 ML IV SCH (09:40)
[2021-08-27 13:00] VITALS: BP 96/61
[2021-08-27] MEDS ORDERED: ERGO1CAP23 PO (14:28)
[2021-08-27] MEDS ORDERED: MULTTAB99 PO (14:28)
[2021-08-27] MEDS ORDERED: AMOX-277 PO (14:51)
[2021-08-27 16:00] LABS: Hematocrit 30.7 % (41.0-53.0); Hemoglobin 10.4 g/dL (13.5-17.5); Red Blood Cells 3.07 10^6/uL (4.5-5.90); Red Cell Distribution Width 13.6 % (11.8-14.3); White Blood Cell 7.2 10^3/uL (4.4-10.8)
[2021-08-27 16:19] LABS: Anion Gap 6 (5-15); Blood Urea Nitrogen 18 mg/dL (7-18); Calcium 7.8 mg/dL (8.5-10.1); Carbon Dioxide 26 mmol/L (21-32); Chloride 108 mmol/L (98-107); Glucose 97 mg/dL (74-106); Potassium 3.6 mmol/L (3.5-5.1); Sodium 140 mmol/L (136-145)
[2021-08-27 16:21] LABS: BUN/Creatinine Ratio 24.7; GFR African American 141 mL/min; GFR Non-African American 117 mL/min
[2021-08-27 16:38] VITALS: BP 95/50
[2021-08-27 16:49] LABS: Band Neutrophils % (manual) 3; Basophils % (manual) 0 (0.0-2.0); Blast Cells 0; Lymphocytes % (manual) 18 (10.0-50.0); Metamyelocytes % 0; Monocytes % (manual) 10 (0-12); Myelocytes % 0; Promyelocytes % 0; Reactive Lymphocytes 0
[2021-08-27 16:50] LABS: Eosinophils % (manual) 2 (0-7)
[2021-08-27 22:00] VITALS: BP 93/59
[2021-08-28] MEDS: DOXYCYCLINE 100MG/250ML 250 ML IV SCH (03:57)
[2021-08-28 05:00] VITALS: BP 99/58
[2021-08-28] MEDS: Ensure Enlive Strawberry 8oz Bottle PO SCH ×3 (08:05→18:12)
[2021-08-28 09:15] VITALS: BP 106/65
[2021-08-28] MEDS: ASCORBIC ACID 500 MG TAB PO SCH (09:17)
[2021-08-28] MEDS: MULTIPLE VITAMIN TAB PO SCH (09:17)
[2021-08-28] MEDS: ENOXAPARIN SOD 40 MG/0.4 ML SYRINGE SC SCH (09:18)
[2021-08-28] MEDS: cefTRIAXone 1GM/50ML D5W 50 ML IV SCH (09:18)
[2021-08-28 13:00] VITALS: BP 99/87
== END 2021-08-28 19:50 | disposition home or self-care (01) | DRG 720 ==
LOC: ER 17:12 → EDBD 17:12 → TELE 08-23 04:46 → TELE-WESTW 08-23 21:34 → WEST WING 08-26 10:25
PROVIDERS: ADMIT Nurse Practitioner Family; ATTEND Internal Medicine
DX: A41.9 Sepsis, unspecified organism (principal); J69.0 Pneumonitis due to inhalation of food and vomit; G93.41 Metabolic encephalopathy; E44.0 Moderate protein-calorie malnutrition; E87.2 Acidosis; E87.1 Hypo-osmolality and hyponatremia; K76.0 Fatty (change of) liver, not elsewhere classified; R65.20 Severe sepsis without septic shock; R62.7 Adult failure to thrive; E86.0 Dehydration; D75.89 Other specified diseases of blood and blood-forming organs; E55.9 Vitamin D deficiency, unspecified; F10.20 Alcohol dependence, uncomplicated; F17.210 Nicotine dependence, cigarettes, uncomplicated; N39.0 Urinary tract infection, site not specified; Z20.822 Contact with and (suspected) exposure to COVID-19; Z82.49 Family history of ischemic heart disease and other diseases of the circulatory system; Z68.1 Body mass index [BMI] 19.9 or less, adult
CPT/HCPCS: 36415; 70450; 70551; 71045; 80048; 80053; 80307; 81001; 82306; 82607; 82746; 83605; 83735; 84443; 84484; 85007; 85025; 85027; 87040; 87086; 87426; 93005; 95819; 96361; 96365; 97116; 97163; 97530; G0378; J0696; J3490

== ENCOUNTER 2023-07-04 16:04 | Inpatient (IN) | payer MEDICAID ==
[~2023-07-04] VITALS: Ht 182.9 cm; Wt 66.3 kg
[~2023-07-04 16:04] MED LIST: AMOX875T4 PO; ERGO1CAP23 PO; MULTTAB99 PO
[2023-07-04 16:40] VITALS: PULSE 92; RESP 19; O2SAT 94
[2023-07-04] MEDS ORDERED: SODIUM CHLORIDE 0.9% 1,000 ML IV ONE ×2 (16:45)
[2023-07-04] MEDS ORDERED: THIAMINE 100mg/ml INJ (200mg/2ml VIAL) IV ONE (16:45)
[2023-07-04 17:12] LABS: Basophils # (auto) 0.1 10 ^3/uL (0-0.2); Hemoglobin 14.6 g/dL (13.5-17.5); Lymphocytes # (auto) 0.7 10 ^3/uL (0.4-5.4); Monocytes # (auto) 0.6 10 ^3/uL (0-1.3); Nucleated Red Blood Cells % 0.1 %
[2023-07-04 17:14] LABS: Basophils % (auto) 1.3 % (0.0-2.0); Eosinophils # (auto) 0.1 10 ^3/uL (0-0.8); Hematocrit 42.9 % (41.0-53.0); Mean Corpuscular Hgb Conc. 34.1 g/dL (32.0-36.0); Mean Corpuscular Volume 102.8 fL (80.0-100.0); Monocytes % (auto) 8.6 % (0.0-12.0); Neutrophils # (auto) 5.1 10 ^3/uL (1.6-8.6); Neutrophils % (auto) 78.1 % (37.0-80.0); Red Blood Cells 4.17 10^6/uL (4.5-5.90); Red Cell Distribution Width 16.6 % (11.8-14.3); White Blood Cell 6.5 10^3/uL (4.4-10.8)
[2023-07-04 17:50] LABS: Alanine Aminotransferase 33 U/L (7-40); Albumin 4.7 g/dL (3.2-4.8); Alkaline Phosphatase 90 U/L (46-116); Anion Gap 11 (5-15); Aspartate Aminotransferase 80 U/L (13-40); BUN/Creatinine Ratio 20.4 (10.0-20.0); Blood Urea Nitrogen 19 mg/dL (9-23); Calcium 9.5 mg/dL (8.5-10.1); Carbon Dioxide 25 mmol/L (20-30); Chloride 103 mmol/L (98-107); Glucose 109 mg/dL (74-106); Potassium 4.5 mmol/L (3.5-5.1); Sodium 139 mmol/L (136-145)
[2023-07-04 17:51] LABS: Bilirubin, Total 0.7 mg/dL (0.2-1.0); Total Protein 7.9 g/dL (5.7-8.2)
[2023-07-04 18:47] LABS: INR 0.99 (0.9-1.15); Partial Thromboplastin Time 29.5 SEC (24.5-34.5); Prothrombin Time 10.4 sec (9.3-11.8)
[2023-07-04 19:10] LABS: Urine Bacteria FEW /hpf (None Seen); Urine Blood Negative /uL (Negative); Urine Clarity HAZY (Clear); Urine Color Yellow (Yellow); Urine Hyaline Cast FEW /lpf (0 - 2); Urine Protein, UAD TRACE (Negative); Urine Specific Gravity 1.015 (1.001-1.035); Urine Urobilinogen Normal (Negative); Urine WBC 16 /hpf (0 - 3); Urine pH 5.5 (5.0-8.0)
[2023-07-04 19:23] VITALS: PULSE 80; RESP 18; O2SAT 95
[2023-07-04] MEDS ORDERED: cefTRIAXone 1GM/50ML D5W 50 ML IV ONE (21:30)
[2023-07-04] MEDS ORDERED: IBUPROFEN 600 MG TAB PO PRN (21:30)
[2023-07-04] MEDS ORDERED: DOCUSATE SOD 100 MG CAP PO PRN (21:30)
[2023-07-04] MEDS ORDERED: SODIUM CHLORIDE 0.9% 1,000 ML IV SCH (21:30)
[2023-07-04] MEDS: LORazepam 2MG/ML-1ML VIAL IV PRN (22:27)
[2023-07-04] MEDS ORDERED: NITROGLYCERIN 0.4 MG SL TAB SL PRN (22:45)
[2023-07-04] MEDS ORDERED: MORPHINE SULFATE INJ 2 MG/ml SYRG IV PRN (22:45)
[2023-07-04 23:31] LABS: Amphetamine Screen, Urine Neg (NEGATIVE)
[2023-07-04 23:47] LABS: Barbiturate Scree,Urine Neg (NEGATIVE); Benzodiazephine Screen, Urine Neg (NEGATIVE); Cannabinoid Screen, Urine Neg (NEGATIVE); Cocaine Screen, Urine Neg (NEGATIVE); Opiate Scree,Urine Neg (NEGATIVE); Phencyclidine Screen, Urine Neg (NEGATIVE)
[2023-07-05] MEDS: LORazepam 2MG/ML-1ML VIAL IV PRN ×3 (04:14→23:58)
[2023-07-05 05:32] LABS: Basophils # (auto) 0.1 10 ^3/uL (0-0.2); Eosinophils # (auto) 0.1 10 ^3/uL (0-0.8); Hemoglobin 13.7 g/dL (13.5-17.5); Lymphocytes # (auto) 0.7 10 ^3/uL (0.4-5.4); Lymphocytes % (auto) 8.9 % (10.0-50.0); Monocytes # (auto) 0.7 10 ^3/uL (0-1.3); Red Cell Distribution Width 16.1 % (11.8-14.3)
[2023-07-05 05:34] LABS: Basophils % (auto) 0.7 % (0.0-2.0); Eosinophils % (auto) 0.9 % (0.0-7.0); Hematocrit 39.7 % (41.0-53.0); Mean Corpuscular Hemoglobin 35.2 pg (28.0-32.0); Mean Corpuscular Hgb Conc. 34.5 g/dL (32.0-36.0); Mean Corpuscular Volume 102.1 fL (80.0-100.0); Monocytes % (auto) 9.3 % (0.0-12.0); Neutrophils # (auto) 6.1 10 ^3/uL (1.6-8.6); Neutrophils % (auto) 80.2 % (37.0-80.0); Red Blood Cells 3.89 10^6/uL (4.5-5.90); White Blood Cell 7.6 10^3/uL (4.4-10.8)
[2023-07-05 05:41] LABS: Alanine Aminotransferase 32 U/L (7-40); Albumin 4.2 g/dL (3.2-4.8); Alkaline Phosphatase 84 U/L (46-116); Anion Gap 10 (5-15); Aspartate Aminotransferase 77 U/L (13-40); BUN/Creatinine Ratio 13.9 (10.0-20.0); Bilirubin, Total 1.2 mg/dL (0.2-1.0); Blood Urea Nitrogen 10 mg/dL (9-23); Calcium 8.8 mg/dL (8.7-10.4); Carbon Dioxide 25 mmol/L (20-30); Chloride 103 mmol/L (98-107); Glucose 98 mg/dL (74-106); Potassium 3.6 mmol/L (3.5-5.1); Sodium 138 mmol/L (136-145); Total Protein 7.2 g/dL (5.7-8.2)
[2023-07-05 09:02] VITALS: PULSE 110; RESP 18; O2SAT 92
[2023-07-05] MEDS ORDERED: MULTIPLE VITAMIN TAB PO SCH (10:00)
[2023-07-05] MEDS ORDERED: THIAMINE HCL 100 MG TAB PO SCH (10:00)
[2023-07-05] MEDS ORDERED: FOLIC ACID 1 MG TAB PO SCH (10:00)
[2023-07-05] MEDS: SODIUM CHLORIDE 0.9% 1,000 ML IV SCH ×2 (12:32→18:40)
[2023-07-05] MEDS: LACTULOSE 20Gm/30ML SOLN PO SCH ×4 (13:28→23:53)
[2023-07-05] MEDS: chlordiazePOXIDE HCL 25 MG CAP PO SCH ×2 (13:28→21:11)
[2023-07-05] MEDS: FOLIC ACID 1 MG, MULTIPLE VITAMIN 10 ML, MAGNESIUM SULF SDV 50% 8 MEQ, THIAMINE INJ 100... INJ SCH ×5 (14:30)
[2023-07-05 15:22] VITALS: BP 116/77; PULSE 78; RESP 18; TEMP 98; O2SAT 93
[2023-07-05 15:45] VITALS: BP 119/82; PULSE 78; RESP 17; TEMP 98; O2SAT 93
[2023-07-05 20:00] VITALS: PULSE 86
[2023-07-05 20:28] VITALS: BP 112/80; PULSE 81; RESP 18; TEMP 98.6
[2023-07-05] MEDS: cefTRIAXone 1GM/50ML D5W 50 ML IV SCH (21:10)
[2023-07-06] MEDS: chlordiazePOXIDE HCL 25 MG CAP PO SCH ×3 (04:55→21:08)
[2023-07-06] MEDS: LACTULOSE 20Gm/30ML SOLN PO SCH ×4 (06:00→23:22)
[2023-07-06] MEDS: SODIUM CHLORIDE 0.9% 1,000 ML IV SCH ×4 (06:09→21:20)
[2023-07-06 07:17] LABS: Alanine Aminotransferase 27 U/L (7-40); Albumin 4.1 g/dL (3.2-4.8); Alkaline Phosphatase 89 U/L (46-116); Anion Gap 8 (5-15); Aspartate Aminotransferase 50 U/L (13-40); BUN/Creatinine Ratio 12.9 (10.0-20.0); Blood Alcohol < 3.0 mg/dL (<10); Blood Urea Nitrogen 8 mg/dL (9-23); Calcium 9.1 mg/dL (8.7-10.4); Carbon Dioxide 25 mmol/L (20-30); Chloride 99 mmol/L (98-107); Glucose 116 mg/dL (74-106); Potassium 3.8 mmol/L (3.5-5.1); Total Protein 6.9 g/dL (5.7-8.2)
[2023-07-06 07:35] LABS: Sodium 132 mmol/L (136-145)
[2023-07-06 08:00] VITALS: PULSE 72; PULSE 76; RESP 16; O2SAT 94
[2023-07-06] MEDS: HYDROcodone-ACET 5/325MG TAB PO PRN (08:11)
[2023-07-06] MEDS: ONDANSETRON HCL 4 MG/2 ML VIAL IV PRN (08:11)
[2023-07-06 09:00] VITALS: BP 111/74; PULSE 87; RESP 21; TEMP 98.5; O2SAT 94
[2023-07-06] MEDS: FOLIC ACID 1 MG, MULTIPLE VITAMIN 10 ML, MAGNESIUM SULF SDV 50% 8 MEQ, THIAMINE INJ 100... INJ SCH ×5 (12:00)
[2023-07-06 13:00] VITALS: BP 95/66; PULSE 68; RESP 18; TEMP 98; O2SAT 93
[2023-07-06 17:00] VITALS: BP 108/70; PULSE 72; RESP 19; TEMP 98.4; O2SAT 94
[2023-07-06 20:00] VITALS: PULSE 77; PULSE 87; RESP 18; O2SAT 94
[2023-07-06] MEDS: cefTRIAXone 1GM/50ML D5W 50 ML IV SCH (20:27)
[2023-07-06 22:00] VITALS: BP 102/73; PULSE 82; RESP 20; TEMP 97.9; O2SAT 97
[2023-07-07] VITALS (8 sets, daily range): BP systolic 106–131; BP diastolic 69–84; PULSE 68–90; RESP 17–20; TEMP 37.1; O2SAT 93–96
[2023-07-07] MEDS: SODIUM CHLORIDE 0.9% 1,000 ML IV SCH ×3 (01:36→17:49)
[2023-07-07] MEDS: ONDANSETRON HCL 4 MG/2 ML VIAL IV PRN ×2 (03:22→08:32)
[2023-07-07] MEDS: LACTULOSE 20Gm/30ML SOLN PO SCH ×3 (05:46→17:49)
[2023-07-07] MEDS: HYDROcodone-ACET 5/325MG TAB PO PRN ×2 (08:32→21:22)
[2023-07-07] MEDS ORDERED: LACT10PA2 PO (10:06)
[2023-07-07] MEDS ORDERED: CHL25C PO (10:06)
[2023-07-07] MEDS ORDERED: THIA100T13 PO (10:06)
[2023-07-07] MEDS ORDERED: FOLI-119 PO (10:06)
[2023-07-07] MEDS ORDERED: CIPR-173 PO (10:06)
[2023-07-07] MEDS ORDERED: MULT-1058 PO (10:06)
[2023-07-07] MEDS: chlordiazePOXIDE HCL 25 MG CAP PO SCH ×2 (10:13→21:22)
[2023-07-07] MEDS: FOLIC ACID 1 MG, MULTIPLE VITAMIN 10 ML, MAGNESIUM SULF SDV 50% 8 MEQ, THIAMINE INJ 100... INJ SCH ×10 (12:00→17:53)
[2023-07-07] MEDS: cefTRIAXone 1GM/50ML D5W 50 ML IV SCH (21:23)
[2023-07-08 04:50] VITALS: BP 123/80; PULSE 90; RESP 18; TEMP 97.7; O2SAT 94
[2023-07-08] MEDS: LACTULOSE 20Gm/30ML SOLN PO SCH ×3 (05:41→12:48)
[2023-07-08] MEDS: SODIUM CHLORIDE 0.9% 1,000 ML IV SCH ×2 (05:44)
[2023-07-08] MEDS ORDERED: chlordiazePOXIDE HCL 25 MG CAP PO SCH (07:00)
[2023-07-08 08:00] VITALS: BP 98/66; PULSE 68; PULSE 72; PULSE 78; RESP 16; RESP 18; TEMP 97.6; O2SAT 94; O2SAT 96
[2023-07-08 12:00] VITALS: BP 110/62; PULSE 61; RESP 18; TEMP 97.1; O2SAT 100
[2023-07-08] MEDS: ONDANSETRON HCL 4 MG/2 ML VIAL IV PRN (12:48)
[2023-07-08] MEDS: HYDROcodone-ACET 5/325MG TAB PO PRN (12:48)
[2023-07-08] MEDS: FOLIC ACID 1 MG, MULTIPLE VITAMIN 10 ML, MAGNESIUM SULF SDV 50% 8 MEQ, THIAMINE INJ 100... INJ SCH ×5 (12:55)
[2023-07-08 13:26] VITALS: TEMP 36.2
== END 2023-07-08 15:30 | disposition home or self-care (01) | DRG 720 ==
LOC: EDBD 16:04 → ER 16:04 → TELE 22:34 → TELE-E-ADS 07-05 14:52
PROVIDERS: ADMIT Nurse Practitioner Family; ATTEND Family Medicine
DX: A41.9 Sepsis, unspecified organism (principal); G93.41 Metabolic encephalopathy; E72.20 Disorder of urea cycle metabolism, unspecified; K76.82 Hepatic encephalopathy; N39.0 Urinary tract infection, site not specified; F03.90 Unspecified dementia, unspecified severity, without behavioral disturbance, psychotic disturbance, mood disturbance, and anxiety; F10.129 Alcohol abuse with intoxication, unspecified; J44.9 Chronic obstructive pulmonary disease, unspecified; F17.210 Nicotine dependence, cigarettes, uncomplicated; Y90.8 Blood alcohol level of 240 mg/100 ml or more; Z71.41 Alcohol abuse counseling and surveillance of alcoholic
CPT/HCPCS: 36415; 70450; 80053; 80307; 80320; 81001; 82140; 85025; 85610; 85730; 87040; 87081; 87086; 87088; 87186; 93005; 96361; 96365; 96375; G0378; J0696; J2405

== ENCOUNTER 2024-06-17 09:44 | Inpatient (IN) | payer MEDICAID ==
[~2024-06-17] VITALS: Ht 182.9 cm; Wt 72.5 kg
[~2024-06-17 09:44] MED LIST changes: +CHL25C PO; +CIPR-173 PO; +FOLI-119 PO; +LACT10PA2 PO; +MULT-1058 PO; +THIA100T13 PO
[2024-06-17] MEDS: SODIUM CHLORIDE 0.9% 1,000 ML IVB ONE (10:56)
[2024-06-17] MEDS: LORazepam 2MG/ML-1ML VIAL IV ONE (10:56)
[2024-06-17 10:59] VITALS: PULSE 98; RESP 18; O2SAT 98
[2024-06-17 10:59] LABS: Basophils # (auto) 0 10 ^3/uL (0-0.2); Hemoglobin 14.2 g/dL (13.5-17.5); Lymphocytes # (auto) 0.8 10 ^3/uL (0.4-5.4); Monocytes # (auto) 0.7 10 ^3/uL (0-1.3)
[2024-06-17 11:02] LABS: Basophils % (auto) 0.2 % (0.0-2.0); Eosinophils # (auto) 0.1 10 ^3/uL (0-0.8); Eosinophils % (auto) 0.7 % (0.0-7.0); Lymphocytes % (auto) 9.9 % (10.0-50.0); Mean Corpuscular Hemoglobin 35.6 pg (28.0-32.0); Mean Corpuscular Hgb Conc. 35.4 g/dL (32.0-36.0); Mean Corpuscular Volume 100.5 fL (80.0-100.0); Monocytes % (auto) 8.6 % (0.0-12.0); Neutrophils # (auto) 6.3 10 ^3/uL (1.6-8.6); Neutrophils % (auto) 80.6 % (37.0-80.0); Platelet Count (auto) 84 10^3/uL (140-450); Red Blood Cells 3.98 10^6/uL (4.5-5.90); Red Cell Distribution Width 14.6 % (11.8-14.3); White Blood Cell 7.8 10^3/uL (4.4-10.8)
[2024-06-17 11:36] LABS: Alanine Aminotransferase 52 U/L (7-40); Albumin 3.3 g/dL (3.2-4.8); Alkaline Phosphatase 78 U/L (46-116); Anion Gap 9 (5-15); Aspartate Aminotransferase 116 U/L (13-40); BUN/Creatinine Ratio 16.9 (10.0-20.0); Blood Urea Nitrogen 10 mg/dL (9-23); Calcium 8.2 mg/dL (8.7-10.4); Carbon Dioxide 24 mmol/L (20-30); Chloride 94 mmol/L (98-107); Glucose 85 mg/dL (74-106); Potassium 3.2 mmol/L (3.5-5.1); Sodium 127 mmol/L (136-145)
[2024-06-17 11:37] LABS: Bilirubin, Total 1.2 mg/dL (0.2-1.0); Total Protein 5.9 g/dL (5.7-8.2)
[2024-06-17 12:02] LABS: Lipase 55 U/L (12-53)
[2024-06-17] MEDS ORDERED: DOCUSATE SOD 100 MG CAP PO PRN (12:15)
[2024-06-17] MEDS ORDERED: LACTULOSE 20Gm/30ML SOLN PO PRN (12:15)
[2024-06-17] MEDS: POTASSIUM EFFERVESENT TAB 25 MEQ PO ONE (12:15)
[2024-06-17] MEDS ORDERED: MORPHINE SULFATE INJ 2 MG/ml SYRG IV PRN (12:15)
[2024-06-17] MEDS ORDERED: ONDANSETRON HCL 4 MG/2 ML VIAL IV PRN (12:15)
[2024-06-17] MEDS: LACTULOSE 20Gm/30ML SOLN PO ONE (12:15)
[2024-06-17 12:58] LABS: Phosphorus 2.1 mg/dL (2.4-5.1)
[2024-06-17 13:06] LABS: Magnesium 0.8 mg/dL (1.6-2.6)
[2024-06-17] MEDS ORDERED: MAGNESIUM SULFATE 1GM/100ML 100 ML IV SCH (13:15)
[2024-06-17] MEDS ORDERED: NITROGLYCERIN 0.4 MG SL TAB SL PRN (13:30)
[2024-06-17] MEDS: MAGNESIUM SULFATE 1GM/100ML 100 ML IV SCH (13:50)
[2024-06-17 14:21] LABS: Urine Bacteria FEW /hpf (None Seen); Urine Blood Negative /uL (Negative); Urine Clarity Clear (Clear); Urine Color Colorless (Yellow); Urine Protein, UAD Negative (Negative); Urine Specific Gravity 1.002 (1.001-1.035); Urine Urobilinogen Normal (Negative); Urine WBC 17 /hpf (0 - 3)
[2024-06-17 14:51] VITALS: BP 110/74; PULSE 82; RESP 22; TEMP 98.4; O2SAT 94; O2SAT 95
[2024-06-17] MEDS: SODIUM CHLORIDE 0.9% 1,000 ML IV SCH (15:47)
[2024-06-17 16:05] VITALS: BP 110/74; PULSE 95; RESP 16; TEMP 98.6; O2SAT 96
[2024-06-17] MEDS: POTASSIUM PHOSPHATE 44 MEQ in D5W 5% 250 ML IV ONE (16:20)
[2024-06-17 20:00] VITALS: PULSE 78
[2024-06-17 21:00] VITALS: BP 102/70; PULSE 74; RESP 18; TEMP 98.5; O2SAT 91
[2024-06-17] MEDS: FOLIC ACID 1 MG, MAGNESIUM SULF SDV 50% 8 MEQ, MULTIPLE VITAMIN 10 ML, THIAMINE INJ 100... INJ SCH (21:00)
[2024-06-18] VITALS (7 sets, daily range): BP systolic 98–114; BP diastolic 67–73; PULSE 70–77; RESP 16–19; TEMP 98.1–98.8; O2SAT 92–96
[2024-06-18 06:29] LABS: Basophils # (auto) 0 10 ^3/uL (0-0.2); Eosinophils # (auto) 0.1 10 ^3/uL (0-0.8); Lymphocytes # (auto) 0.6 10 ^3/uL (0.4-5.4); Monocytes # (auto) 0.6 10 ^3/uL (0-1.3); Nucleated Red Blood Cells % 0.1 %
[2024-06-18 06:31] LABS: Basophils % (auto) 0.3 % (0.0-2.0); Eosinophils % (auto) 0.9 % (0.0-7.0); Hematocrit 44.5 % (41.0-53.0); Hemoglobin 15.7 g/dL (13.5-17.5); Lymphocytes % (auto) 8.8 % (10.0-50.0); Mean Corpuscular Hemoglobin 35.5 pg (28.0-32.0); Mean Corpuscular Hgb Conc. 35.2 g/dL (32.0-36.0); Mean Corpuscular Volume 100.9 fL (80.0-100.0); Monocytes % (auto) 8.3 % (0.0-12.0); Neutrophils # (auto) 5.9 10 ^3/uL (1.6-8.6); Neutrophils % (auto) 81.7 % (37.0-80.0); Platelet Count (auto) 77 10^3/uL (140-450); Red Blood Cells 4.41 10^6/uL (4.5-5.90); Red Cell Distribution Width 14.8 % (11.8-14.3); White Blood Cell 7.2 10^3/uL (4.4-10.8)
[2024-06-18 06:51] LABS: Alanine Aminotransferase 44 U/L (7-40); Alkaline Phosphatase 87 U/L (46-116); Anion Gap 7 (5-15); BUN/Creatinine Ratio 10.9 (10.0-20.0); Blood Urea Nitrogen 6 mg/dL (9-23); Calcium 8.7 mg/dL (8.7-10.4); Carbon Dioxide 27 mmol/L (20-30); Chloride 100 mmol/L (98-107); Glucose 87 mg/dL (74-106); Potassium 3.4 mmol/L (3.5-5.1)
[2024-06-18 06:52] LABS: Albumin 3.4 g/dL (3.2-4.8); Aspartate Aminotransferase 99 U/L (13-40); Total Protein 6.3 g/dL (5.7-8.2)
[2024-06-18 07:01] LABS: Sodium 134 mmol/L (136-145)
[2024-06-18 07:09] LABS: Magnesium 1.9 mg/dL (1.6-2.6)
[2024-06-18 07:10] LABS: Phosphorus 2.8 mg/dL (2.4-5.1)
[2024-06-18 07:14] LABS: INR 1.01 (0.9-1.15); Partial Thromboplastin Time 30.2 SEC (24.5-34.5); Prothrombin Time 10.7 sec (9.3-11.8)
[2024-06-18] MEDS: POTASSIUM CHL 20 Meq TABLET PO ONE ×2 (11:04→11:26)
[2024-06-18] MEDS: cefTRIAXone 1GM/50ML D5W 50 ML IV ONE (11:27)
[2024-06-18 12:19] LABS: Amphetamine Screen, Urine Neg (NEGATIVE); Barbiturate Scree,Urine Neg (NEGATIVE); Benzodiazephine Screen, Urine Neg (NEGATIVE); Cannabinoid Screen, Urine Neg (NEGATIVE); Cocaine Screen, Urine Neg (NEGATIVE); Opiate Scree,Urine Neg (NEGATIVE); Phencyclidine Screen, Urine Neg (NEGATIVE)
[2024-06-19] VITALS (7 sets, daily range): BP systolic 93–119; BP diastolic 59–73; PULSE 62–77; RESP 17–20; TEMP 97.8–98.6; O2SAT 94–97
[2024-06-19 06:23] LABS: Alanine Aminotransferase 49 U/L (7-40); Albumin 3.6 g/dL (3.2-4.8); Alkaline Phosphatase 85 U/L (46-116); Anion Gap 7 (5-15); Aspartate Aminotransferase 79 U/L (13-40); BUN/Creatinine Ratio 10.3 (10.0-20.0); Bilirubin, Total 0.7 mg/dL (0.2-1.0); Blood Urea Nitrogen 6 mg/dL (9-23); Calcium 8.7 mg/dL (8.7-10.4); Carbon Dioxide 26 mmol/L (20-30); Chloride 101 mmol/L (98-107); Glucose 116 mg/dL (74-106); Lipase 52 U/L (12-53); Magnesium 1.4 mg/dL (1.6-2.6); Potassium 3.1 mmol/L (3.5-5.1); Sodium 134 mmol/L (136-145)
[2024-06-19 06:24] LABS: Total Protein 6.3 g/dL (5.7-8.2)
[2024-06-19] MEDS: cefTRIAXone 1GM/50ML D5W 50 ML IV SCH (08:35)
[2024-06-19] MEDS: POTASSIUM EFFERVESENT TAB 25 MEQ PO ONE (08:45)
[2024-06-19] MEDS: MAGNESIUM SULFATE 1GM/100ML 100 ML IV ONE (13:58)
[2024-06-20 01:02] VITALS: BP 103/72; PULSE 72; RESP 20; TEMP 98.6; O2SAT 96
[2024-06-20 05:13] VITALS: BP 93/66; PULSE 62; RESP 20; TEMP 97.9; O2SAT 94
[2024-06-20 06:14] LABS: Basophils # (auto) 0 10 ^3/uL (0-0.2); Basophils % (auto) 0.7 % (0.0-2.0); Eosinophils # (auto) 0.1 10 ^3/uL (0-0.8); Eosinophils % (auto) 2.1 % (0.0-7.0); Hematocrit 43.2 % (41.0-53.0); Hemoglobin 15.2 g/dL (13.5-17.5); Lymphocytes # (auto) 0.7 10 ^3/uL (0.4-5.4); Lymphocytes % (auto) 16.1 % (10.0-50.0); Mean Corpuscular Hemoglobin 35.5 pg (28.0-32.0); Mean Corpuscular Hgb Conc. 35.3 g/dL (32.0-36.0); Mean Corpuscular Volume 100.6 fL (80.0-100.0); Monocytes # (auto) 0.6 10 ^3/uL (0-1.3); Monocytes % (auto) 13.1 % (0.0-12.0); Neutrophils # (auto) 3.1 10 ^3/uL (1.6-8.6); Nucleated Red Blood Cells % 0.2 %; Platelet Count (auto) 138 10^3/uL (140-450); Red Blood Cells 4.29 10^6/uL (4.5-5.90); Red Cell Distribution Width 14.6 % (11.8-14.3); White Blood Cell 4.5 10^3/uL (4.4-10.8)
[2024-06-20 06:22] LABS: Anion Gap 4 (5-15); Carbon Dioxide 29 mmol/L (20-30); Chloride 98 mmol/L (98-107); Potassium 3.6 mmol/L (3.5-5.1); Sodium 131 mmol/L (136-145)
[2024-06-20 06:23] LABS: Calcium 9.4 mg/dL (8.7-10.4)
[2024-06-20 06:28] LABS: BUN/Creatinine Ratio 9.7 (10.0-20.0); Blood Urea Nitrogen 6 mg/dL (9-23); Glucose 95 mg/dL (74-106)
[2024-06-20 08:00] VITALS: PULSE 74; RESP 18
[2024-06-20 08:50] LABS: Hepatitis B Surface Antibody Negative (Negative)
[2024-06-20 09:00] VITALS: BP 106/62; PULSE 67; RESP 20; TEMP 97.7; O2SAT 96
[2024-06-20 09:02] LABS: Hepatitis B Surface Antigen Negative (Negative)
[2024-06-20 09:23] LABS: Hepatitis C Antibody Negative (Negative)
[2024-06-20 20:00] VITALS: PULSE 81; RESP 18
[2024-06-20 21:28] VITALS: BP 107/75; PULSE 68; RESP 18; TEMP 97.6; O2SAT 96
[2024-06-21] VITALS (9 sets, daily range): BP systolic 100–127; BP diastolic 64–73; PULSE 64–97; RESP 17–18; TEMP 97.5–98.3; O2SAT 96–99
[2024-06-21 10:02] LABS: Alanine Aminotransferase 81 U/L (7-40); Albumin 3.8 g/dL (3.2-4.8); Alkaline Phosphatase 82 U/L (46-116); Anion Gap 8 (5-15); Aspartate Aminotransferase 75 U/L (13-40); BUN/Creatinine Ratio 10.4 (10.0-20.0); Bilirubin, Total 0.4 mg/dL (0.2-1.0); Blood Urea Nitrogen 7 mg/dL (9-23); Calcium 9.4 mg/dL (8.7-10.4); Carbon Dioxide 27 mmol/L (20-30); Chloride 99 mmol/L (98-107); Glucose 145 mg/dL (74-106); Magnesium 1.5 mg/dL (1.6-2.6); Potassium 3.7 mmol/L (3.5-5.1); Sodium 134 mmol/L (136-145); Total Protein 6.7 g/dL (5.7-8.2)
[2024-06-21] MEDS: MAGNESIUM SULFATE 1GM/100ML 100 ML IV SCH (11:00)
[2024-06-21] MEDS: MAGNESIUM OXIDE 400 MG TAB PO ONE (12:38)
[2024-06-22] VITALS (9 sets, daily range): BP systolic 90–135; BP diastolic 53–83; PULSE 60–97; RESP 16–19; TEMP 97.7–98.8; O2SAT 90–100
[2024-06-22] MEDS: MAGNESIUM OXIDE 400 MG TAB PO SCH (10:00)
[2024-06-23] VITALS (7 sets, daily range): BP systolic 92–104; BP diastolic 57–72; PULSE 65–86; RESP 16–19; TEMP 97.9–98.7; O2SAT 95–99
[2024-06-24] VITALS (8 sets, daily range): BP systolic 98–115; BP diastolic 60–74; PULSE 57–79; RESP 15–20; TEMP 97.7–98; O2SAT 90–99
[2024-06-25 01:00] VITALS: BP 98/74; PULSE 68; RESP 18; TEMP 97.9; O2SAT 99
[2024-06-25 05:00] VITALS: BP 93/60; PULSE 61; RESP 18; TEMP 98; O2SAT 98
[2024-06-25 06:06] VITALS: BP 108/73; PULSE 79; RESP 16; TEMP 97.7; O2SAT 95
[2024-06-25 09:00] VITALS: BP 103/73; PULSE 83; RESP 16; TEMP 97.7; O2SAT 97
== END 2024-06-25 14:20 | disposition home or self-care (01) ==
LOC: EDBD 09:44 → ER 09:44 → TELE 13:20 → TELE-WESTW 14:52 → WEST WING 06-22 18:38 → EAST 06-25 05:43
PROVIDERS: ADMIT Internal Medicine; ATTEND Internal Medicine
DX: K80.70 Calculus of gallbladder and bile duct without cholecystitis without obstruction (principal); G93.41 Metabolic encephalopathy; D69.6 Thrombocytopenia, unspecified; E44.1 Mild protein-calorie malnutrition; E87.1 Hypo-osmolality and hyponatremia; E83.39 Other disorders of phosphorus metabolism; M48.54XA Collapsed vertebra, not elsewhere classified, thoracic region, initial encounter for fracture; F03.90 Unspecified dementia, unspecified severity, without behavioral disturbance, psychotic disturbance, mood disturbance, and anxiety; K56.41 Fecal impaction; K76.0 Fatty (change of) liver, not elsewhere classified; F10.239 Alcohol dependence with withdrawal, unspecified; E87.6 Hypokalemia; K70.9 Alcoholic liver disease, unspecified; J44.9 Chronic obstructive pulmonary disease, unspecified; N39.0 Urinary tract infection, site not specified; F17.210 Nicotine dependence, cigarettes, uncomplicated; E83.42 Hypomagnesemia; E80.6 Other disorders of bilirubin metabolism; R74.01 Elevation of levels of liver transaminase levels; B96.89 Other specified bacterial agents as the cause of diseases classified elsewhere; Z82.49 Family history of ischemic heart disease and other diseases of the circulatory system; Z68.21 Body mass index [BMI] 21.0-21.9, adult
CPT/HCPCS: 36415; 74176; 76705; 80048; 80053; 80307; 80320; 81001; 82140; 82607; 82746; 83690; 83735; 83930; 83935; 84100; 84300; 85025; 85610; 85730; 86706; 86803; 87086; 87088; 87186; 87340; 93005; 96361; 96374; 97163; G0378; J7060